=== PATIENT | female | born 1995 | race Caucasian/White ===

== ENCOUNTER → 2017-02-18 | Outpatient (CLI) | payer OTHER ==
[~2017-02-18] MED LIST: AMOX500C PO; CLIN150C14 PO; IBUP1TAB7 PO; TYLETAB34 PO; ZOFR4TAB3 SL
== END ==
LOC: CLAB 13:47
PROVIDERS: ATTEND Obstetrics & Gynecology
DX: N64.52 Nipple discharge (principal)
CPT/HCPCS: 36415; 84146